=== PATIENT | male | born 1975 | race Caucasian/White ===

== ENCOUNTER 2020-05-01 10:32 | Outpatient (CLI) | payer SELFPAY ==
--- NOTE | ~2020-05-01 | XR_ITS ---
EXAMINATION: XR cervical spine 4-5V EXAM DATE: 05/01/2020 10:49 INDICATION: Cervicalgia. TECHNIQUE: Cervical spine frontal, lateral, lateral swimmers, and open-mouth odontoid projections. Bilateral oblique projections. FINDINGS: Mild to moderate disc disease C5-6, mild at the other cervical levels. There is mild diffu se cervical arthropathy. The neural foramen appear widely patent on the oblique projections. There is no evidence of acute cervical fracture. The odontoid process is intact. Pre-dens space is normal. Prevertebral soft tissue is normal. There are no soft tissue abnormalities identified. The verteb ral bodies are aligned. IMPRESSION: 1. Overall mild cervical spondylosis without evidence of neural foraminal stenosis. Reviewed, dictated and finalized at location A. IMPRESSION: 1. Overall mild cervical spondylosis without evidence of neural foraminal sten osis.
== END 2020-05-01 10:33 | disposition home or self-care (01) ==
PROVIDERS: PCP Nurse Practitioner Family; Visit Provider Nurse Practitioner Family
DX: M54.2 Cervicalgia (principal)
CPT/HCPCS: 72050

== ENCOUNTER 2020-05-03 09:50 | Outpatient (CLI) | payer SELFPAY ==
[2020-05-03 10:08] LABS: Basophils Absolute Auto 0.06 K/mm3 (0.00-0.10); Basophils Percent Auto 0.6 % (0.0-1.0); Eosinophils Absolute Auto 0.04 K/mm3 (0.02-0.50); Eosinophils Percent Auto 0.4 % (1.0-6.0); Hematocrit 48.3 % (40.0-54.0); Hemoglobin 16.5 g/dL (14.0-18.0); Immature Granulocyte Absolute 0.01 K/mm3 (0.00-0.00); Immature Granulocyte Percent A 0.1 % (0.0-0.0); Mean Corpuscular HGB Conc 34.2 g/dL (32.0-36.0); Mean Corpuscular Hemoglobin 33.5 pg (27.0-31.0); Mean Corpuscular Volume 98.2 fL (78.0-102.0); Mean Platelet Volume 9.1 fl (8.7-11.0); Monocytes Absolute Auto 1.16 K/mm3 (0.10-0.90); Monocytes Percent Auto 11.6 % (2.0-11.0); Neutrophils Absolute Auto 6.2 K/mm3 (1.7-7.2); Neutrophils Percent Auto 62.3 % (50.0-70.0); Platelet Count Result 281 K/mm3 (150-420); Red Blood Count 4.92 M/mm3 (4.70-6.10); Red Cell Distribution Width 11.9 % (11.6-14.4)
[2020-05-03 10:54] LABS: Alanine Aminotransferase 25 U/L (16-63); Albumin Level 4.3 g/dL (3.4-5.0); Alkaline Phosphatase 169 U/L (46-116); Anion Gap 9 mmol/L (8-16); Aspartate Amino Transferase 16 U/L (15-37); Bilirubin,Total 0.5 mg/dL (0.00-1.00); Blood Urea Nitrogen 8 mg/dL (7-18); Calcium 9.4 mg/dL (8.5-10.1); Carbon Dioxide 30 mmol/L (21-32); Chloride 99 mmol/L (98-108); Cholesterol 162 mg/dL (0-200); Estimated Glomerular Filt Rate > 60; Glucose 91 mg/dL (70-99); HDL Direct 32 mg/dL (40-60); LDL Cholesterol Calculated 105 mg/dL (<130); Osmolality Calculated 284 mOsm/kg (285-295); Potassium 4.4 mmol/L (3.5-5.1); Sodium 138 mmol/L (136-145); Thyroid Stimulating Hormone Reflex 1.42 u/IU/mL (0.36-3.74); Triglycerides 127 mg/dL (0-150)
== END 2020-05-03 09:51 | disposition home or self-care (01) ==
LOC: CHSLAB 09:51
PROVIDERS: PCP Family Medicine; Visit Provider Family Medicine
DX: I10 Essential (primary) hypertension (principal)
CPT/HCPCS: 36415; 80053; 80061; 84443; 85025

== ENCOUNTER 2023-01-13 06:51 | Emergency (ER) | payer SELFPAY ==
--- NOTE | ~2023-01-13 | CT_ITS ---
EXAMINATION: CT abdomen pelvis w con DATE: 01/13/2023 09:41 INDICATION: Abdominal pain TECHNIQUE: Computed tomography (CT) of the abdomen and pelvis was performed with 100 cc Omnipaque 350 intravenous contrast. The dose-length product was 330.62 mGy-cm. Automated exposure control and iter ative reconstruction technique were employed. COMPARISON: None. FINDINGS: Lung bases are unremarkable. Heart size normal. No significant pleural or pericardial effus ion. The liver, spleen, pancreas, adrenal glands and kidneys are unremarkable. Normal appendix. Nonob structive bowel gas pattern. Gallbladder is present. Tiny fat-containing umbilical hernia. No abnorma l pelvic masses or fluid collections. No lymphadenopathy. Mild lower thoracic spondylosis. No acute o sseous abnormality. Small fat-containing right inguinal hernia. IMPRESSION: 1. No acute abdominal abnormality. Reviewed, dictated and finalized at location L. ICAL DIRECTOR
--- NOTE | ~2023-01-13 | XR_ITS ---
EXAMINATION: XR chest 2V 01/13/2023 09:51 INDICATION: Cough. Flu. PROCEDURE: 2 view chest COMPARISON: 06/30/2018 FINDINGS: The lungs are clear. The cardiomediastinal silhouette is within normal limits. There are no pleural effusions. There is no pneumothorax suspected. IMPRESSION: 1: NO ACUTE CARDIOPULMONARY DISEASE. Reviewed, dictated and finalized at location L. RN
[2023-01-13 06:53] VITALS: BP 131/77; PULSE 87; RESP 18; TEMP 36.7; O2SAT 96
[2023-01-13 08:03] LABS: Basophils Percent Auto 0.4 % (0.2-1.2); Hematocrit 47.1 % (42.0-52.0); Hemoglobin 16.2 g/dL (14.0-18.0); Immature Granulocyte Absolute 0.01 K/mm3 (0.00-0.031); Immature Granulocyte Percent A 0.2 % (0-0.5); Lymphocytes Percent Auto 16.7 % (18.3-44.2); Mean Corpuscular HGB Conc 34.4 g/dl (32-36); Mean Corpuscular Hemoglobin 33.1 pg (26-34); Mean Corpuscular Volume 96.3 fl (80-100); Mean Platelet Volume 9.7 fl (7.4-10.4); Monocytes Absolute Auto 0.6 K/mm3 (0.1-0.6); Monocytes Percent Auto 10.6 % (2.6-8.5); Neutrophils Absolute Auto 3.9 K/mm3 (1.3-6.7); Neutrophils Percent Auto 72.1 % (45.5-73.1); Platelet Count Result 182 k/mm3 (150-375); Red Blood Count 4.89 M/mm3 (4.6-6.20); Red Cell Distribution Width 12.4 % (11.5-14.5); White Blood Count 5.4 K/mm3 (4.5-10.0)
[2023-01-13 08:13] LABS: Alanine Aminotransferase 35 U/L (6-50); Albumin Level 4.4 g/dL (3.5-5.1); Alkaline Phosphatase 123 U/L (38-126); Anion Gap 12 mmol/L (8-16); Aspartate Amino Transferase 48 U/L (17-59); Bilirubin,Total 0.5 mg/dL (0.2-1.3); Blood Urea Nitrogen 15 mg/dL (9-20); Carbon Dioxide 26 mmol/L (22-30); Chloride 94 mmol/L (98-107); Estimated CRCL calculation 93 ml/min; Estimated Glomerular Filt Rate > 60; Glucose 108 mg/dL (65-110); Potassium 4.2 mmol/L (3.4-5.0); Sodium 132 mmol/L (137-145)
[2023-01-13 08:35] LABS: Atypical Lymphocytes Present; Platelet Estimate Adequate (Adequate); Schistocytes None Seen (NORMAL)
[2023-01-13 09:30] LABS: Influenza A QL RT-PCR Positive (Negative); Influenza B QL RT-PCR Negative (Negative); RSV RNA, RT-PCR Negative (Negative); SARS-CoV-2 RNA PCR Negative (Negative)
--- NOTE | 2023-01-13 09:50 | ED.GENADULT ---
HPI - General Adult General Chief complaint: Nausea/Vomiting/Diarrhea Stated complaint: bodyaches, n/v Time Seen by Provider: 01/13/23 08:55 History of Present Illness HPI narrative: Porsha Arteaga is a 48 y/o male who presents with reports of having nausea/vomiting that started last (5 days ago) He kept food down on Thursday and symptoms returned Thursday (3 days ago) with nausea/vomiting/ fever/ mild productive cough. Denies PMHx / does not take any medications daily Related Data Allergies Allergy/AdvReac Type Severity Reaction Status Date / Time aspirin Allergy Severe nausea, Verified 05/03/20 09:00 body sweats Review of Systems Review of Systems: CONSTITUTIONAL: complains fever, chills, EYES: Denies visual changes, redness, or discharge. ENT: Denies rhinorrhea, congestion, sore throat, or otalgia. CARDIOVASCULAR: Denies chest pain, palpitations, or edema. RESPIRATORY: Productive cough for 2-3 days GASTROINTESTINAL: Complains of nausea, vomiting that started 5 days ago. GENITOURINARY: Denies dysuria or hematuria. SKIN: Denies rash or itching. MUSCULOSKELETAL complains of back pain, joint pain, or myalgia. NEUROLOGIC: Denies headache, numbness, dizziness, or weakness. PSYCHIATRIC: Denies anxiety or depression. PMFSH Past Medical History Medical History Abnormal EKG History of hypotension Hypertension Neck pain Family History Family History Mother Skin cancer Social History Social History Smoking packs per day: 2 Smoking cigarettes per day: 40.0 Years smoked: 4 Smoking pack-years: 8.00 Smoking status: Former smoker Tobacco type: cigarettes Alcohol intake: never Substance use: current Substance use type: marijuana Living arrangements: with family Additional living arrangements comments: Occupation/Education: unemployed Gender identity (if verbalized by the patient): Male Exam Narrative: GENERAL: appears to not feel well, well-nourished, and in no acute distress. HEAD: Normocephalic, atraumatic. EYES: PERRLA and EOMI. ENT: Nares clear, no rhinorrhea or epistaxis. Mucous membranes moist. Oropharynx without tonsillar hypertrophy exudate or other lesions. NECK: Supple. No adenopathy or masses. No carotid bruits or JVD CHEST: Clear to auscultation. No respiratory distress. No wheezes rales or rhonchi HEART: Regular rate and rhythm. No murmur heard. Normal peripheral pulses. ABDOMEN: Soft, nontender, nondistended, normal active bowel sounds. EXTREMITIES: Normal range of motion. No edema. SKIN: Warm, dry, no rash. NEURO: No focal deficits. Alert and oriented x3. PSYCH: Normal mood and affect. Course Vital Signs Vital signs: Vital Signs Temperature 36.7 C 01/13/23 06:53 Pulse Rate 87 01/13/23 06:53 Respiratory Rate 18 01/13/23 06:53 Blood Pressure 131/77 01/13/23 06:53 Pulse Oximetry 96 01/13/23 06:53 Oxygen Delivery Room Air 01/13/23 06:53 Temperature 36.7 C 01/13/23 06:53 Pulse Rate 87 01/13/23 06:53 Respiratory Rate 18 01/13/23 06:53 Blood Pressure 131/77 01/13/23 06:53 Pulse Oximetry 96 01/13/23 06:53 Oxygen Delivery Room Air 01/13/23 06:53 Medical Decision Making [facility] Narrative Medical decision making narrative: Patient complains of generally not feeling well for about 5 days with nausea/vomiting/ mild productive cough/ fever/chills He states he hasn't been able to eat and drink and his whole body hurts Concern for : dehydration/ colitis/ Influenza/ Covid / URI/ Pneumonia/ Gastroenteritis CBC-stable CMP-stable Lipase-stable UA- +2 ketones Influenza a- positive flu B/RSV/COvid- negative Chest x ray - negative CT abdomen- negative With the +2 ketones in his urine second liter of NS given Patient re-evaluated and
[2023-01-13] MEDS: MORPHINE SULFATE (*CRX) 4 MG/ML INJ 2 MG IV PUSH (09:58)
[2023-01-13] MEDS: ONDANSETRON INJ 4 MG/2 ML VIAL IV PUSH (09:58)
[2023-01-13] MEDS: FAMOTIDINE 20 MG/2 ML VIAL IV PUSH (09:58)
[2023-01-13] MEDS: SODIUM CHLORIDE 0.9% IV 1,000 ML 999 ML IV CONT ×2 (09:58→11:31)
[2023-01-13 10:03] LABS: Lipase 80 U/L (23-300)
[2023-01-13 10:23] LABS: Lactic Acid Reflex 1.1 mmol/L (0.7-2.0)
[2023-01-13 10:34] LABS: Appearance Urine Cloudy (Clear); Bacteria Urine None Seen /hpf; Bilirubin Urine Negative (Negative); Blood Urine Negative (Negative); Color Urine Dark Yellow (Yellow); Glucose Urine UA Negative (Negative); Ketones Urine 2+ mg/dL (Negative); Leukocyte Esterase Ur Negative LEU/UL (Negative); Nitrate Urine Negative (Negative); Protein Urine 1+ mg/dL (Negative); RBC Urine 0-2 /hpf (0-2); Squamous Epithelial Cell Urine Occasional /hpf (Few); WBC Urine 0-5 /hpf
[2023-01-13 10:40] LABS: Specific Grav Ur 1.055 (1.001-1.035)
[2023-01-13 10:41] LABS: Add Urine Microscopic? YES
[2023-01-13 12:57] VITALS: BP 109/62; PULSE 78; RESP 12; O2SAT 100
== END 2023-01-13 12:59 | disposition home or self-care (01) ==
PROVIDERS: Emergency Medicine; Emergency Provider Nurse Practitioner Family
DX: J10.1 Influenza due to other identified influenza virus with other respiratory manifestations (principal); Z20.822 Contact with and (suspected) exposure to COVID-19; I10 Essential (primary) hypertension
CPT/HCPCS: 36415; 71046; 74177; 80053; 81001; 83605; 83690; 85025; 87637; 96361; 96374; 96375; 99284; J2270; J2405; J7030; Q9967

== ENCOUNTER 2023-06-15 09:01 | Outpatient (CLI) | payer MEDICAID, SELFPAY ==
--- NOTE | ~2023-06-15 | XR_ITS ---
Lumbosacral Spine: AP and lateral views Clinical History: Pain Findings: The normal lordotic curve is maintained. The vertebral bodies and posterior elements are i ntact. The intervertebral disc spaces are preserved. The sacroiliac joints are normally outlined. Impression: No significant abnormality. Reviewed, dictated and finalized at [facility]. Impression: No significant abnormality.
--- NOTE | ~2023-06-15 | XR_ITS ---
Cervical Spine: AP, lateral, open-mouth views Clinical History: Pain Findings: The normal lordotic curve is maintained. No fracture or subluxation seen. There are mild to moderate degenerative disc changes throughout the cervical spine. There is mild facet arthropathy in the cervical spine. Pre-vertebral soft tissues are unremarkable. Impression: Overall mild degenerative spondylosis, as above. Reviewed, dictated and finalized at location . Impression: Overall mild degenerative spondylosis, as above.
[2023-06-15 09:17] LABS: Basophils Absolute Auto 0.06 K/mm3 (0.00-0.10); Basophils Percent Auto 0.5 % (0.0-1.0); Eosinophils Absolute Auto 0.14 K/mm3 (0.02-0.50); Eosinophils Percent Auto 1.2 % (1.0-6.0); Hematocrit 48.8 % (40.0-54.0); Hemoglobin 16.5 g/dL (14.0-18.0); Immature Granulocyte Absolute 0.03 K/mm3 (0.00-0.00); Immature Granulocyte Percent A 0.3 % (0.0-0.0); Lymphocytes Percent Auto 23.5 % (18.0-42.0); Mean Corpuscular HGB Conc 33.8 g/dL (32-36); Mean Corpuscular Hemoglobin 32.8 pg (27.0-31.0); Mean Platelet Volume 8.9 fl (8.7-11.0); Monocytes Absolute Auto 0.74 K/mm3 (0.10-0.90); Monocytes Percent Auto 6.2 % (2.0-11.0); Neutrophils Absolute Auto 8.15 K/mm3 (1.70-7.20); Neutrophils Percent Auto 68.3 % (50.0-70.0); Platelet Count Result 276 K/mm3 (150-420); Red Blood Count 5.03 M/mm3 (4.70-6.10); Red Cell Distribution Width 12.7 % (11.6-14.4); White Blood Count 11.9 K/mm3 (4.8-10.8)
[2023-06-15 09:22] LABS: Appearance Urine Clear (Clear); Bilirubin Urine Negative (Negative); Blood Urine Negative (Negative); Color Urine Light Yellow (Yellow); Glucose Urine UA Negative (Negative); Ketones Urine Negative (Negative); Leukocyte Esterase Ur Negative (Negative); Nitrate Urine Negative (Negative); Protein Urine Negative (Negative); Urobilinogen Urine 0.2 mg/dL (0.2-1.0)
[2023-06-15 09:26] LABS: Hemoglobin A1C 5.1 % (<5.7)
[2023-06-15 09:46] LABS: Add Urine Microscopic? NO
[2023-06-15 10:17] LABS: Alanine Aminotransferase 40 U/L (16-63); Albumin Level 3.8 g/dL (3.4-5.0); Alkaline Phosphatase 158 U/L (46-116); Anion Gap 8 mmol/L (4-12); Aspartate Amino Transferase 26 U/L (15-37); Bilirubin,Total 0.5 mg/dL (0.00-1.00); Blood Urea Nitrogen 4 mg/dL (7-18); Calcium 9.4 mg/dL (8.5-10.1); Carbon Dioxide 31 mmol/L (21-32); Chloride 105 mmol/L (98-108); Cholesterol 175 mg/dL (0-200); Estimated Glomerular Filt Rate > 60; Glucose 90 mg/dL (70-99); HDL Direct 38 mg/dL (40-60); LDL Cholesterol Calculated 111 mg/dL (<130); Osmolality Calculated 294 mOsm/kg (285-295); Potassium 4.4 mmol/L (3.5-5.1); Sodium 144 mmol/L (136-145); Total Protein 7.1 g/dL (6.4-8.2); Triglycerides 130 mg/dL (0-150)
[2023-06-15 10:22] LABS: Thyroid Stimulating Hormone Reflex 1.48 u/IU/mL (0.36-3.74)
[2023-06-15 12:29] LABS: Prostate Specific Antigen 0.2 ng/mL (< OR = 4.0)
[2023-06-15 13:06] LABS: HIV 1 P24 AG Negative (Negative); HIV 1/2 AB Negative (Negative)
[2023-06-17 12:43] LABS: RPR Screen NON-REACTIVE (NON-REACTIVE)
== END 2023-06-15 09:02 | disposition home or self-care (01) ==
LOC: CHSLAB 09:02
PROVIDERS: PCP Nurse Practitioner Family; Visit Provider Nurse Practitioner Family
DX: M54.2 Cervicalgia (principal); Z12.5 Encounter for screening for malignant neoplasm of prostate; S31.103A Unspecified open wound of abdominal wall, right lower quadrant without penetration into peritoneal cavity, initial encounter; Z76.89 Persons encountering health services in other specified circumstances; M54.50 Low back pain, unspecified; M43.02 Spondylolysis, cervical region
CPT/HCPCS: 36415; 72040; 72100; 80053; 80061; 81003; 83036; 84153; 84443; 85025; 86592; 86695; 86696; 87086; 87806; G0103

== ENCOUNTER 2023-06-15 12:19 | Outpatient (NON) | payer MEDICAID, SELFPAY | END 2023-06-15 12:20 | disposition home or self-care (01) | LOC: CHSLAB 12:20 | PROVIDERS: Visit Provider Nurse Practitioner Family | DX: S31.103A Unspecified open wound of abdominal wall, right lower quadrant without penetration into peritoneal cavity, initial encounter (principal) | CPT/HCPCS: 87070; 87075; 87205 ==

== ENCOUNTER 2023-06-17 08:32 | Outpatient (CLI) | payer MEDICAID, SELFPAY ==
--- NOTE | ~2023-06-17 | US_ITS ---
EXAMINATION: US soft tissue groin RT DATE: 06/17/2023 08:59 INDICATION: Unspecified open wound of abdomen. TECHNIQUE: Multiple grayscale and Doppler ultrasound images of the right groin were obtained. COMPARISON: CT abdomen and pelvis 01/13/2023 FINDINGS: In the right inguinal region, there is a 1.5 x 0.4 x 0.7 cm hypoechoic subcutaneous mass. IMPRESSION: 1. Small subcutaneous mass in the right inguinal region, likely inflammation. No drainable fluid. Reviewed, dictated and finalized at location A. IMPRESSION: 1. Small subcutaneous mass in the right inguinal region, likely inflammation. N o drainable fluid.
== END 2023-06-17 08:33 | disposition home or self-care (01) ==
LOC: CHSIMG 08:33
PROVIDERS: PCP Nurse Practitioner Family; Visit Provider Nurse Practitioner Family
DX: S31.103A Unspecified open wound of abdominal wall, right lower quadrant without penetration into peritoneal cavity, initial encounter (principal)
CPT/HCPCS: 76882

== ENCOUNTER 2023-12-02 16:38 | Outpatient (CLI) | payer MEDICAID, SELFPAY ==
[2023-12-02 16:57] LABS: Add Urine Microscopic? NO; Appearance Urine Clear (Clear); Bilirubin Urine Negative (Negative); Blood Urine Negative (Negative); Color Urine Yellow (Yellow); Glucose Urine UA Negative (Negative); Ketones Urine Negative (Negative); Leukocyte Esterase Ur Negative LEU/UL (Negative); Nitrate Urine Negative (Negative); Protein Urine Negative (Negative); Specific Grav Ur 1.025 (1.010-1.020); Urobilinogen Urine 0.2 mg/dL (0.2-1.0); pH Urine 5.5 (5.0-8.0)
[2023-12-02 17:20] LABS: HIV 1 P24 AG Negative (Negative); HIV 1/2 AB Negative (Negative)
[2023-12-04 06:48] LABS: Hepatitis C Virus Antibody NON-REACTIVE (NON-REACTIVE)
[2023-12-07 11:40] LABS: Chlamydia trachomatis NOT DETECTED (NOT DETECTE); Neisseria gonorrhoeae PCR NOT DETECTED (NOT DETECTE)
[2023-12-07 17:59] LABS: RPR Screen NON-REACTIVE (NON-REACTIVE)
== END 2023-12-02 16:39 | disposition home or self-care (01) ==
LOC: CHSLAB 16:40
PROVIDERS: PCP Nurse Practitioner Family; Visit Provider Nurse Practitioner Family
DX: R21 Rash and other nonspecific skin eruption (principal)
CPT/HCPCS: 36415; 81003; 86592; 86695; 86696; 86803; 87491; 87591; 87806

== ENCOUNTER 2024-04-21 08:47 | Outpatient (RCR) | payer OTHER, SELFPAY ==
--- NOTE | 2024-04-21 09:54 | OPREHPOC ---
Outpatient Therapy Plan of Care This is a Multidisciplinary Plan of Care that may contain components documented by all disciplines (PT, OT, and ST.) PT Problem 1 PT Problem #1 Knowledge Deficit PT Goal 1 Goal / Goal Update The patient will be independent in a home exercise program. Target Visit 4 PT Problem 2 PT Problem #2 Pain PT Goal 1 Goal / Goal Update The patient will report no greater than 3/10 low back pain with walking for 20 minutes. Target Visit 8 PT Problem 3 PT Problem #3 Impaired Functional Mobility PT Goal 1 Goal / Goal Update 1. The patient will demonstrate 25% or less self perceived disability per the Back Index questionnaire. 2. The patient will demonstrate the ability to ambulate 1,200 feet during the 6 minute walk test without increased R LE pain to improve community ambulation. Target Visit 8 PT Problem 4 PT Problem #4 Impaired Strength PT Goal 1 Goal / Goal Update The patient will demonstrate lower abdominal, lower back extension, and hip extension strength of 4/5 to improve support to the lumbar spine for lifting activities. Target Visit 8
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
--- NOTE | 2024-05-19 10:04 | OPREHPOC ---
Outpatient Therapy Plan of Care This is a Multidisciplinary Plan of Care that may contain components documented by all disciplines (PT, OT, and ST.) PT Problem 1 PT Problem #1 Knowledge Deficit PT Goal 1 Goal / Goal Update The patient will be independent in a home exercise program. Target Visit 4 Progress Met PT Problem 2 PT Problem #2 Pain PT Goal 1 Goal / Goal Update The patient will report no greater than 3/10 low back pain with walking for 20 minutes. patient to report no locking of the R calf with ambulation Target Visit 16 Progress Not Met PT Problem 3 PT Problem #3 Impaired Functional Mobility PT Goal 1 Goal / Goal Update 1. The patient will demonstrate 25% or less self perceived disability per the Back Index questionnaire. 2. The patient will demonstrate the ability to ambulate 1,200 feet during the 6 minute walk test without increased R LE pain to improve community ambulation. 3. patient to squat and lift 30lbs from floor to waist without increased pain Target Visit 16 Progress Not Met PT Problem 4 PT Problem #4 Impaired Strength PT Goal 1 Goal / Goal Update The patient will demonstrate lower abdominal, lower back extension, and hip extension strength of 4/5 to improve support to the lumbar spine for lifting activities. Target Visit 8 Progress Met PT Goal 2 Goal / Goal Update improve bilateral hip strength to 5/5 improve lower back extension to 5/5 Target Visit 16
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
--- NOTE | 2024-05-26 09:09 | PCPTNOTE ---
Cancelled session. Going to call back to let us know if he can reschedule.
--- NOTE | 2024-09-14 15:31 | PCPTNOTE ---
The patient was last seen in the clinic on 05/24/24 and is now discharged. -Karyna Greenberg, PT
== END 2024-07-20 23:59 | disposition home or self-care (01) ==
LOC: CHSPT 08:47
PROVIDERS: Visit Provider Nurse Practitioner Family
DX: M54.50 Low back pain, unspecified (principal); G89.29 Other chronic pain
CPT/HCPCS: 97014; 97110; 97112; 97140; 97161; 97530; G0283

== ENCOUNTER 2024-08-18 09:37 | Outpatient (CLI) | payer OTHER, SELFPAY ==
--- OUTSIDE RECORDS SUMMARY | 2024-08-18 09:41 | XMS_ITS | Clinical Summary ---
Author Organization [facility] Address [facility] [place] [address] Care Team Providers Care Bottom Painter Name Role Phone None, Provider MD Primary Care Provider Unavaila ble Allergies No known active allergies Medications No known medications Active Problems No known active problems Social History Tobacco Use Types Packs/Day Years Used Date Smoking Tobacco: Never Smokeless Tobacco: Never Tobacco Cessation:Counseling Given: Not Answered Sex and Gender Information Value Date Recorded Sex Assigned at Not on file Legal Sex Male 10:22 PM [employer] Gender Identity Not on file Sexual Orientation Not on file Last Filed Vital Signs Vital Sign Reading Time Taken Comments Blood Pressure 136/96 01/16/2023 7:00 PM [employer] Pulse 85 01/16/2023 6:46 PM [employer] Temperature 37.6 C (99.6 F) 01/16/2023 6:46 PM [employer] Respiratory Rate 20 01/16/2023 6:46 PM [employer] Oxygen Saturation 97% 01/16/2023 8:00 PM [employer] Inhaled Oxygen Concentration - - Weight 76.4 kg (168 lb 6.4 oz) 01/16/2023 6:46 P M [employer] Height 177.8 cm (5' 10) 01/16/2023 6:46 PM [employer] Body Mass Index 24.16 01/16/2023 6:46 PM [employer] Plan of Treatment Health Maintenance Due Date Last Done Comments Colorectal Cancer Screening Colonoscopy (10 Years) 1977 Annual Physical 01/08/1980 Hepatitis C 1995 Hepatitis B Vaccines (1 of 3 - 19+ 3-dose series) 01/08/1996 COVID-19 Vaccine (2 - 2023-2 5 season) 2023 09/11/2020 DTaP, Tdap and Td Vaccines ( 2 - Td or Tdap) 09/21/2028 09/21/2018 Meningococcal B Vaccine Aged Out No l onger eligible based on patient's age to complete this topic Meningococcal Vaccine Aged Out No rosa twyla eligible based on patient's age to complete this topic Pneumococcal Vaccine: Pediat rics (0 to 5 Years) and At-Risk Patients (6 to 49 Years) Aged Out No longer eligi ble based on patient's age to complete this topic RSV Immunizations Under 20 Months Aged Out No longer eligible based on patient's age to complete this topic Care Teams Bottom Painter Relationship Specialty Start Date End Date None, Provider, MD PCP - General UNKNOWN PHYSICIAN SPECIALTY 01/16/23
[2024-08-18 09:48] LABS: Hematocrit 48.0 % (40.0-54.0); Hemoglobin 16.1 g/dL (14.0-18.0); Immature Granulocyte Percent A 0.2 % (0.0-0.0); Lymphocytes Absolute Auto 3.29 K/mm3 (1.10-4.50); Mean Corpuscular HGB Conc 33.5 g/dL (32-36); Mean Corpuscular Hemoglobin 33.3 pg (27.0-31.0); Mean Corpuscular Volume 99.2 fL (78.0-102.0); Nucleated Red Blood Cells Absolute Auto 0.00 K/mm3 (0.00-0.00); Nucleated Red Blood Cells Perc 0.0 % (0-0.0); Platelet Count Result 301 K/mm3 (150-420); Red Blood Count 4.84 M/mm3 (4.70-6.10); White Blood Count 8.6 K/mm3 (4.8-10.8)
[2024-08-18 10:16] LABS: Alanine Aminotransferase 21 U/L (6-50); Albumin Level 4.4 g/dL (3.5-5.1); Alkaline Phosphatase 120 U/L (38-126); Anion Gap 5 mmol/L (4-12); Aspartate Amino Transferase 29 U/L (17-59); Bilirubin,Total 0.9 mg/dL (0.2-1.3); Blood Urea Nitrogen 12 mg/dL (9-20); Calcium 9.4 mg/dL (8.4-10.2); Carbon Dioxide 28 mmol/L (22-30); Chloride 106 mmol/L (98-107); Cholesterol 165 mg/dL (0-200); Estimated Glomerular Filt Rate > 60; Glucose 81 mg/dL (65-110); HDL Direct 37 mg/dL; Magnesium 2.0 mg/dL (1.6-2.3); Osmolality Calculated 286 mOsm/kg (285-295); Potassium 5.0 mmol/L (3.4-5.0); Sodium 139 mmol/L (137-145); Total Protein 7.3 g/dL (6.3-8.2); Triglycerides 128 mg/dL (<150)
[2024-08-18 10:46] LABS: Prostate Specific Antigen 0.2 ng/mL (< OR = 4.0)
== END 2024-08-18 09:38 | disposition home or self-care (01) ==
LOC: CHSLAB 09:38
PROVIDERS: PCP Nurse Practitioner Family; Visit Provider Nurse Practitioner Family
DX: I10 Essential (primary) hypertension (principal); Z79.899 Other long term (current) drug therapy; Z13.6 Encounter for screening for cardiovascular disorders; Z12.5 Encounter for screening for malignant neoplasm of prostate
CPT/HCPCS: 36415; 80053; 80061; 82306; 83735; 84153; 85025; G0103

== ENCOUNTER 2025-01-24 13:34 | Outpatient (CLI) | payer OTHER, SELFPAY ==
--- NOTE | ~2025-01-24 | US_ITS ---
EXAMINATION: US venous doppler LE RT DATE: 01/24/2025 14:20 INDICATION: Calf pain TECHNIQUE: Grayscale ultrasound images without and with compression and Doppler ultrasound images of the right lower extremity veins were obtained. COMPARISON: None. FINDINGS: The visualized portions of right common femoral vein, profunda (deep) femoral vein, femoral vein, popliteal vein, peroneal veins, posterior tibial veins, and greater saphenous vein outflow are patent. IMPRESSION: 1. No deep venous thrombosis seen in the right lower extremity. Reviewed, dictated and finalized at location A. K LOADER AND UNLOADER
--- NOTE | ~2025-01-24 | US_ITS ---
EXAM/PROCEDURE: US arterial ankle brachial ind HISTORY: I73.9 - Peripheral vascular disease, unspecified COMPARISON: None available. TECHNIQUE: GONZALEZ FINDINGS: Right and left brachial systolic pressure readings are 99 and 118 respectively. Right and left dorsalis pedis pressure readings are 77 and 121 Right and left posterior tibial pressure readings are 70 and 131 Right and left great toe pressure readings are 57 and 72 Right and left ABIs are 0.65 and 1.11 Right and left TBI's are 0.48 and 0.72 Plethysmography is significantly abnormal, widened on the right side and slightly widened on the left side. IMPRESSION: 1. Moderately severe disease suspected in the right lower extremity based on plethysmography and GONZALEZ of 0.65. 2. Mild disease may be present on the left side based on plethysmography. Reviewed, dictated and finalized at location A. ER GUARD IMPRESSION: 1. Moderately severe disease suspected in the right lower extremity based on pl ethysmography and GONZALEZ of 0.65. 2. Mild disease may be present on the left side based on plethysmography.
== END 2025-01-24 13:35 | disposition home or self-care (01) ==
LOC: CHSIMG 13:36
PROVIDERS: PCP Nurse Practitioner Family; Visit Provider Nurse Practitioner Family
DX: I73.9 Peripheral vascular disease, unspecified (principal); M62.831 Muscle spasm of calf
CPT/HCPCS: 93922; 93971